=== PATIENT | female | born 1975 | race African-American/Black ===

== ENCOUNTER 2018-03-14 12:25 | Outpatient (CLI) | payer OTHER ==
[~2018-03-14] VITALS: Ht 160 cm; Wt 79.2 kg
[2018-03-14 12:40] VITALS: Ht 160 cm; Wt 79.2 kg
[2018-03-14] MEDS ORDERED: PREN-93 PO (12:40)
[2018-03-14 12:41] VITALS: BP 112/69; PULSE 75; RESP 18
--- NOTE | 2018-03-14 14:43 | PN ---
Triage Information Date/Time 03/14/2018 Reason for visit: Uterine contractions Weeks of Gestation 37.6 weeks /Para 8 para 7 Diabetes: none Hypertention: none Objective Vital Signs Date Temp Pulse Resp B/P (MAP) Pulse Ox O2 O2 Flow FiO2 Time Delivery Rate 03/14/18 98.1 75 18 112/69 Room Air 12:41 (83) Heart Rate: 140's Heart Rate Comments reactive Contractions: >10 Minutes Apart Exam long / closed Results/Medications Imaging Results 1. Single live intrauterine fetus, cephalic presentation, unchanged. The heart rate is 146 bpm. 2. Posterior placenta, grade 1. 3. Amniotic fluid index: 14.3 cm. 4. Estimated age by ultrasound: 36-week 6 days plus or minus 2 weeks 4 days. The estimated weight is 3109 g. The EFW falls of 40.5%. There has been adequate growth since the previous scan. The estimated date of delivery based on today's sonogram is 04/05/2018. 1. Single live intrauterine fetus, cephalic presentation, unchanged. heart rate is 132 bpm 2. Posterior placenta, grade 1. 3. Amniotic fluid index 0.3 cm. 4. Biophysical profile score: 8/8. Disposition: Discharge Assessment/Plan home with labor precautions EDDIE GORMAN MD Mar 14, 2018 14:43
--- NOTE | 2018-03-14 14:49 | TRIAGE ---
OB Triage Datetime Report Generated by CPN: 03/14/2018 14:48 Datetime: 03/14/2018 13:36 Vaginal Exam Dilatation (cms): 0.0 Station: -3 Exam By: KHEMANI Datetime: 03/14/2018 13:30 Stage of : OB Triage Maternal Assessment Level of Consciousness: Fully Conscious Labor Evaluation Frequency: 8-10 Monitor Mode: External Duration (sec)2399: 60-100 Quality: Mild Resting Tone [place]: Relaxed Heart Rate FHR Baseline Rate: 135 Monitor Mode: External US Variability: Moderate 6-25 bpm Accelerations: 15X15 Decelerations: None Category: Category I Pain Assessment Pain Scale: 0 Pain Goal: 3 Membrane Status: Intact Vaginal Bleeding: None Datetime: 03/14/2018 13:18 Comments: EFM OFF FOR BEDSIDE U/S. Datetime: 03/14/2018 12:37 Assessment Type: Triage Maternal Assessment Level of Consciousness: Fully Conscious DTR's/Clonus: DTRs 2+; No Clonus Headache: Denies Blurred Vision: No Respiratory Effort: Unlabored; Regular Rhythm; Equal Expansion Breath Sounds, Left: Clear and Equal Breath Sounds, Right: Clear and Equal Nausea/Vomiting: Denies RUQ Epigastric Pain: Denies Lower Extremities Edema: None Degree: None Upper Extremities Edema: None Degree: None Facial Edema: None Fall Risk Assessment History of Falling: (0) No Secondary Diagnosis: (0) No Ambulatory Aid: (0) Bedrest/Nurse Assist IV Therapy: (0) No Gait: (0) Normal/Bedrest/Immobile Mental Status: (0) Oriented to Own Ability Fall Score: 0 Fall Risk Score Definition: No Risk: No action required Datetime: 03/14/2018 12:36 EGA: 37.6 Datetime: 03/14/2018 12:35 Time of Arrival: 03/14/2018 12:14 Arrived By: Ambulatory Arrived From: Office Chief Complaint: PT. SENT FROM CLINIC FOR EVAL OF LABOR Movement: Present Contractions: Denies/Absent Rupture of Membranes: Denies Vaginal Bleeding: None Vaginal Discharge: Denies Recent Sexual Intercouse: Denies Abdominal Trauma: Not Applicable Patient Complaints: None Time Provider Notified: 03/14/2018 14:40 Provider Notified: HUNTER Initial Plan: EFM/BPP/EFW/SVE Datetime: 03/14/2018 12:34 Monitor Mode: External Monitor Mode: External US
== END 2018-03-14 14:50 | disposition home or self-care (01) ==
LOC: OBT 12:25 → L-D 12:27 → OBT 14:50
PROVIDERS: ATTEND Obstetrics & Gynecology
DX: O62.9 Abnormality of forces of labor, unspecified (principal); Z3A.37 37 weeks gestation of pregnancy
CPT/HCPCS: 76815; 76818; Z7500; G0463

== ENCOUNTER → 2018-08-23 | Emergency (ER) | payer OTHER ==
[~2018-08-23] VITALS: Ht 162.6 cm; Wt 74.0 kg
[~2018-08-23] MED LIST: CEPH-443 PO; PREN-93 PO; SULF1TAB31 PO
[2018-08-23 12:22] VITALS: Ht 162.6 cm; Wt 74.0 kg
--- NOTE | 2018-08-23 14:15 | ERD ---
ER Documentation Chief Complaint Chief Complaint bumps on arms and leg , possible insect bites per pt HPI 43-year-old female presenting with insect bite to her right upper arm and left cheek. Patient states she sustained these 2 days ago and has been very irritated. She noted that the site on her right arm has swollen extensively to cover her whole right upper arm. She has had no fevers. She does not use any medications. Denies other medical problems. NKDA. Surgical history denies. Social history denies ROS All systems reviewed and are negative except as per history of present illness. Medications Home Meds Active Scripts Sulfamethoxazole/Trimethoprim* (Bactrim Ds* Tablet) 1 Each Tablet, 1 TAB PO BID, #14 TAB Prov:LATISHA DAMIAN PA-C 08/23/18 Cephalexin* (Keflex*) 500 Mg Capsule, 500 MG PO QID for 7 Days, CAP Prov:LATISHA DAMIAN PA-C 08/23/18 Reported Medications Vit No.124/Iron/FA ( Vitamin Tablet) 1 Each Tablet, 1 EACH PO DAILY, TAB 03/14/18 Allergies Allergies: Coded Allergies: No Known Allergy (Unverified , 03/14/18) PMhx/Soc Medical and Surgical Hx: pt denies Medical Hx, pt denies Surgical Hx Hx Alcohol Use: No Hx Substance Use: No Hx Tobacco Use: No Smoking Status: Never smoker FmHx Family History: No diabetes, No coronary disease, No other Physical Exam Vitals Vital Signs Date Temp Pulse Resp B/P (MAP) Pulse Ox O2 O2 Flow FiO2 Time Delivery Rate 08/23/18 97.7 84 18 101/58 98 12:22 (72) Physical Exam GENERAL: The patient is well-appearing, well-nourished, in no acute distres CHEST: Clear to auscultation bilaterally. There are no rales, wheezes or rhonc hi. HEART: Regular rate and rhythm. No murmurs, clicks, rubs or gallops. EXTREMITIES: Equal pulses bilaterally. There is no peripheral clubbing, cyanosis or edema. No focal swelling or erythema. Full range of motion. Grossly neurovascularly intact. NEUROLOGIC: Alert and oriented. Cranial nerves II through XII intact. Motor strength in all 4 extremities with 5 out of 5 strength. Sensation grossly intact. SKIN: Warm slightly swollen indurated right upper forearm with no fluctuance. No pustules and no lymphatic streaking. Approximately 20 cm x 5 cm. Procedures/MDM MDM: 43-year-old female presenting with extensive swelling of the right upper forearm. Patient likely has skin irritation secondary to insect bite. I will treat for possible skin infection. Patient is recommended to apply warm compresses and return in 2 days for recheck. Patient is told she develops fever or lymphatic streaking to return sooner. All questions answered at discharge Departure Diagnosis: Primary Impression: Bug bite Condition: Stable Patient Instructions: Insect Bite Referrals: [facility] YOU HAVE RECEIVED A MEDICAL SCREENING EXAM AND THE RESULTS INDICATE THAT YOU DO NOT HAVE A CONDITION THAT REQUIRES URGENT TREATMENT IN THE EMERGENCY DEPARTMENT. FURTHER EVALUATION AND TREATMENT OF YOUR CONDITION CAN WAIT UNTIL YOU ARE SEEN IN YOUR DOCTORS OFFICE WITHIN THE NEXT 1-2 DAYS. IT IS YOUR RESPONSIBILITY TO MAKE AN APPOINTMENT FOR FOLOW-UP CARE. IF YOU HAVE A PRIMARY DOCTOR --you should call your primary doctor and schedule an appointment IF YOU DO NOT HAVE A PRIMARY DOCTOR YOU CAN CALL OUR PHYSICIAN REFERRAL HOTLINE AT IF YOU CAN NOT AFFORD TO SEE A PHYSICIAN YOU CAN CHOSE FROM THE FOLLOWING [facility] [address] [facility] [facility]. [facility] [address] [facility] [address] [facility] [address] [facility]. [facility] [address] [facility] [facility]. [facility]. [address] [place] Additional Instructions: FOLLOW UP WITH YOUR PRIMARY CARE PHYSICIAN TOMORROW.Return to this facility if you are not improving as expected. LATISHA DAMIAN PA-C Aug 23, 2018 14:15
== END | disposition home or self-care (01) ==
LOC: FTE 12:14
DX: S40.861A Insect bite (nonvenomous) of right upper arm, initial encounter (principal); S00.86XA Insect bite (nonvenomous) of other part of head, initial encounter; W57.XXXA Bitten or stung by nonvenomous insect and other nonvenomous arthropods, initial encounter; Y92.9 Unspecified place or not applicable
CPT/HCPCS: 99283